=== PATIENT | female | born 1990 | race Caucasian/White ===

== ENCOUNTER 2017-02-17 10:13 | Emergency (ER) | payer MEDICAID ==
[~2017-02-17] VITALS: Ht 157.5 cm; Wt 62.1 kg
[~2017-02-17 10:13] MED LIST: DOCU-131 PO; FERR325T18 PO; IBUP-1222 PO; METO10TA82 PO; ONDA4TAB7 PO; PNV11TAB5 PO; PREN1TAB62 PO
[2017-02-17 10:51] LABS: PATH.CAST-FLAG NOT PRESENT; SPERM-FLAG NOT PRESENT; SRC-FLAG NOT PRESENT; XTAL-FLAG NOT PRESENT; YLC-FLAG NOT PRESENT
[2017-02-17 10:55] LABS: HEMATOCRIT 32.9 % (34.6-47.8); HEMOGLOBIN 10.6 g/dL (11.7-16.4); WHITE BLOOD COUNT 6.9 x10^3/uL (3.4-10)
[2017-02-17 11:00] LABS: ASPARTATE AMINO TRANSFERASE 45 U/L (15-37); BLOOD UREA NITROGEN 9 mg/dL (7-18)
[2017-02-17 11:59] VITALS: BP 108/75
== END 2017-02-17 12:48 | disposition home or self-care (01) ==
LOC: ED 11:00
DX: N30.90 Cystitis, unspecified without hematuria (principal)
CPT/HCPCS: 36415; 74176; 80053; 81001; 83690; 85025; 87077; 87086; 87186; 99285

== ENCOUNTER 2017-03-29 09:48 | Emergency (ER) | payer MEDICAID ==
[~2017-03-29] VITALS: Ht 157.5 cm; Wt 63.6 kg
[2017-03-29] MEDS ORDERED: SODIUM CHLORIDE 0.9% 1,000ML IVBOLUS ONE (11:00)
[2017-03-29] MEDS ORDERED: SODIUM CHLORIDE FLUSH 10ML SYR IVF ONE (11:00)
[2017-03-29] MEDS ORDERED: ACETAMINOPHEN 325 MG TABLET PO ONE (11:00)
[2017-03-29] MEDS ORDERED: ACETAMINOPHEN 325 MG TABLET ONE (11:16)
[2017-03-29] MEDS ORDERED: ONDANSETRON 2MG/ML, 2ML ONE (11:42)
[2017-03-29 11:44] LABS: HEMATOCRIT 35.8 % (34.6-47.8); HEMOGLOBIN 11.7 g/dL (11.7-16.4); WHITE BLOOD COUNT 12.1 x10^3/uL (3.4-10)
[2017-03-29 11:56] LABS: BLOOD UREA NITROGEN 10 mg/dL (7-18)
[2017-03-29] MEDS ORDERED: ONDANSETRON 2MG/ML, 2ML IVPush ONE (13:00)
[2017-03-29 13:18] VITALS: BP 96/63
== END 2017-03-29 13:21 | disposition home or self-care (01) ==
LOC: ED 12:17
DX: N64.4 Mastodynia (principal)
CPT/HCPCS: 36415; 80048; 82040; 83605; 84145; 85025; 87040; 96361; 96374; 99285; J2405; J7030

== ENCOUNTER 2017-08-16 09:58 | Emergency (ER) | payer MEDICAID ==
[~2017-08-16] VITALS: Ht 157.5 cm; Wt 68.9 kg
[2017-08-16 10:16] VITALS: BP 128/89
== END 2017-08-16 11:32 | disposition home or self-care (01) ==
LOC: ED 10:49
DX: S90.222A Contusion of left lesser toe(s) with damage to nail, initial encounter (principal); G89.11 Acute pain due to trauma; X58.XXXA Exposure to other specified factors, initial encounter; Y93.89 Activity, other specified; Y92.009 Unspecified place in unspecified non-institutional (private) residence as the place of occurrence of the external cause; Y99.8 Other external cause status
CPT/HCPCS: 99284

== ENCOUNTER 2018-10-27 15:28 | Emergency (ER) | payer MEDICAID ==
[~2018-10-27] VITALS: Ht 157.5 cm; Wt 69.5 kg
[2018-10-27 16:07] LABS: BASOPHILS # (AUTO) 0.02 x10^3/uL (0-0.1); BASOPHILS % (AUTO) 0 % (0-1); EOSINOPHILS # (AUTO) 0.01 x10^3/uL (0-0.4); EOSINOPHILS % (AUTO) 0 % (1-7); LYMPHOCYTES # (AUTO) 1.52 x10^3/uL (1-3.4); LYMPHOCYTES % (AUTO) 20 % (22-44); MD NO; MEAN CORPUSCULAR HEMOGLOBIN 31.3 pg (27.0-34.8); MEAN CORPUSCULAR HGB CONC 34.7 g/dL (32.4-35.8); MEAN CORPUSCULAR VOLUME 90.1 fL (80-100); MEAN PLATELET VOLUME 8.7 fL (7.4-10.4); MONOCYTES # (AUTO) 0.41 x10^3/uL (0.2-0.8); MONOCYTES % (AUTO) 5 % (2-9); NEUTROPHILS # (AUTO) 5.56 x10^3/uL (1.8-6.8); NEUTROPHILS % (AUTO) 74 % (42-75); PLATELET COUNT 265 x10^3/uL (130-400); RED BLOOD COUNT 4.62 x10^6/uL (3.82-5.3); RED CELL DISTRIBUTION WIDTH 13.5 % (9.6-15.2)
[2018-10-27 16:15] LABS: ALANINE AMINOTRANSFERASE 25 U/L (12-78); ALBUMIN 4.3 g/dL (3.4-5.0); ANION GAP 6 mmol/L (5-15); CALCIUM 9.3 mg/dL (8.5-10.1); CHLORIDE 109 mmol/L (98-107)
--- NOTE | 2018-10-27 16:19 | NUR ---
PT TO US
--- NOTE | 2018-10-27 16:30 | NUR ---
PT RETURNED FROM US, AT BEDSIDE. CALL LIGHT WITHIN REACH
[2018-10-27 16:33] LABS: ALKALINE PHOSPHATASE 53 U/L (45-117); BILIRUBIN,TOTAL 0.8 mg/dL (0.2-1.0); TOTAL PROTEIN 7.8 g/dL (6.4-8.2)
[2018-10-27 16:35] VITALS: BP 110/81
[2018-10-27 16:48] LABS: MICROSCOPIC INDICATED
[2018-10-27 16:49] LABS: CULTURE INDICATED? YES
== END 2018-10-27 18:01 | disposition home or self-care (01) ==
LOC: ED 17:22
DX: O46.91 Antepartum hemorrhage, unspecified, first trimester (principal); Z90.89 Acquired absence of other organs; Z91.013 Allergy to seafood; Z3A.01 Less than 8 weeks gestation of pregnancy
CPT/HCPCS: 36415; 76801; 80053; 81001; 84702; 85025; 86901; 87086; 99284

== ENCOUNTER 2018-11-07 12:40 | Emergency (ER) | payer MEDICAID ==
[~2018-11-07] VITALS: Ht 157.5 cm; Wt 66.0 kg
[2018-11-07 13:20] LABS: BASOPHILS # (AUTO) 0.02 x10^3/uL (0-0.1); BASOPHILS % (AUTO) 0 % (0-1); EOSINOPHILS # (AUTO) 0.03 x10^3/uL (0-0.4); EOSINOPHILS % (AUTO) 0 % (1-7); LYMPHOCYTES # (AUTO) 1.78 x10^3/uL (1-3.4); LYMPHOCYTES % (AUTO) 24 % (22-44); MD NO; MEAN CORPUSCULAR HEMOGLOBIN 30.2 pg (27.0-34.8); MEAN CORPUSCULAR HGB CONC 32.8 g/dL (32.4-35.8); MEAN CORPUSCULAR VOLUME 92.2 fL (80-100); MEAN PLATELET VOLUME 8.8 fL (7.4-10.4); MONOCYTES # (AUTO) 0.39 x10^3/uL (0.2-0.8); MONOCYTES % (AUTO) 5 % (2-9); NEUTROPHILS # (AUTO) 5.12 x10^3/uL (1.8-6.8); NEUTROPHILS % (AUTO) 70 % (42-75); PLATELET COUNT 249 x10^3/uL (130-400); RED BLOOD COUNT 4.73 x10^6/uL (3.82-5.3)
[2018-11-07 13:32] LABS: ALANINE AMINOTRANSFERASE 22 U/L (12-78); ALBUMIN 4.1 g/dL (3.4-5.0); ANION GAP 9 mmol/L (5-15); CALCIUM 9.4 mg/dL (8.5-10.1); CHLORIDE 107 mmol/L (98-107); CREATININE 0.84 mg/dL (0.55-1.02)
[2018-11-07 13:50] LABS: ALKALINE PHOSPHATASE 52 U/L (45-117); BILIRUBIN,TOTAL 1.4 mg/dL (0.2-1.0); TOTAL PROTEIN 7.6 g/dL (6.4-8.2)
[2018-11-07] MEDS ORDERED: PYRIDOXINE 25MG TABLET PO ONE (13:58)
[2018-11-07] MEDS ORDERED: ONDANSETRON 4 MG TABLET PO ONE (14:00)
[2018-11-07] MEDS ORDERED: DOXYLAMINE 25MG TABLET PO ONE (14:00)
--- NOTE | 2018-11-07 14:20 | NUR ---
[facility] A&OX4 28 Y/O F REPORTS "NAUSEA AND VOMITING, DIZZINESS ON AND OFF, I'M , 7 WEEKS 3 DAYS, MEDICATION AT HOME NOT HELPING, IT'S REGLAN." LMP 09/04/18. G6,P3, A2. DENIES ANY PAIN, ABD PAIN, CRAMPING, VAGINAL BLEEDING OR DISCHARGE. CONT PULSE OX, BP MONITORS APPLIED. VSS. CALL LIGHT IN REACH. FALL PRECUATIONS IN PLACE. ERP AT BEDSIDE FOR EVALUATION. AWAITING ORDERS.
[2018-11-07] MEDS ORDERED: ONDANSETRON 2MG/ML, 2ML ONE (14:27)
[2018-11-07] MEDS ORDERED: ONDANSETRON 2MG/ML, 2ML IVPush ONE (14:30)
[2018-11-07] MEDS ORDERED: SODIUM CHLORIDE 0.9% 1,000ML IVBOLUS ONE (14:30)
[2018-11-07] MEDS ORDERED: METO10TA82 PO (14:39)
--- NOTE | 2018-11-07 14:48 | NUR ---
IV PLACED, PT MEDICATED NOTED PER ORDER FOR NAUSEA. IVF INFUSING. DENIES ANY PAIN AND NEED TO USE RESTROOM. CALL LIGHT IN REACH. VSS.
--- NOTE | 2018-11-07 14:52 | NUR ---
PT DENIES URGE TO USE RESTROOM, AWARE UA SAMPLE NEEDED, TO CALL WITH CALL LIGHT WHEN HAVING URGE.
--- NOTE | 2018-11-07 15:25 | NUR ---
MD AT BEDSIDE FOR RE-EVALUATION. TO PROVIDE PO CHALLENGE PER MD. PT REPORTS NAUSEA IMPROVING. IVF CONTINUE INFUSING PER ORDER. VSS. CALL LIGHT IN REACH
--- NOTE | 2018-11-07 15:30 | NUR ---
REPORT TO BREAK ELEUTERIO MUNIZ
--- NOTE | 2018-11-07 16:10 | NUR ---
PT TOLERATED PO CHALLENGE WELL. DENIES NASUEA AND EMESIS. DISCUSSED WITH ERP, AWARE, IVF CONTINUE INFUSING PER ORDER. CALL LIGHT IN REACH. VSS.
--- NOTE | 2018-11-07 16:30 | NUR ---
PT CONTINUES TO DENY URGE TO URINATE, DISCUSSED WITH DR. CAMPBELL, AWARE, NO UA TO BE COLLECTED PER MD.
--- NOTE | 2018-11-07 16:52 | NUR ---
PT UP FOR RECHECK, IVF COMPLETED. VSS. NAUSEA AND VOMTING RESOLVED. CALL LIGHT IN REACH.
--- NOTE | 2018-11-07 17:10 | NUR ---
CRISTY MCCLELLAN AT BEDSIDE TO ASSIST WITH PT DISCHARGE.
[2018-11-07 17:26] VITALS: BP 95/57
== END 2018-11-07 17:28 | disposition home or self-care (01) ==
LOC: ED 14:27
DX: O21.1 Hyperemesis gravidarum with metabolic disturbance (principal); Z3A.21 21 weeks gestation of pregnancy; Z87.891 Personal history of nicotine dependence
CPT/HCPCS: 36415; 80053; 83690; 84702; 85025; 93005; 96361; 96374; 99284; J2405; J7030